=== PATIENT | female | born 1970 | race African-American/Black ===

== ENCOUNTER 2018-02-19 23:41 | Emergency (ER) | payer MEDICAID ==
[~2018-02-19] VITALS: Ht 167.6 cm; Wt 64.9 kg
[2018-02-19] MEDS ORDERED: DILANTIN100 MG ORAL ×2 (23:47→23:56)
--- NOTE | 2018-02-19 23:56 | Emergency Room Report ---
History of Present Illness General Chief Complaint: Seizure Source: Patient, EMS Present Illness HPI A 47-year-old female with a history of seizure and also has a psych history. She presents with questionable seizure. She says she been out of Reglan for the last 3 months. No one we will refill them for her. Supposedly she had a seizure and her friend called 911. No tongue laceration. No incontinence of bowel or urine. No other injury. Denies any other complaint. Similar symptom in the past. Allergies: Coded Allergies: PENICILLINS (Unverified Allergy, Unknown, 02/19/18) Patient History Past Medical History: see triage record, old chart reviewed, HTN, seizures, psych hx Past Surgical History: other Pertinent Family History: none Social History: Reports: smoking Now: No Immunizations: other Reviewed Nursing Documentation: PMH: Agreed; PSxH: Agreed Nursing Documentation-PMH Past Medical History: No History, Except For Hx Seizures: Yes Review of Systems Eye: Denies: eye pain, blurred vision ENT: Denies: ear pain, nose congestion, throat swelling Respiratory: Denies: cough, shortness of breath Cardiovascular: Denies: chest pain, palpitations Gastrointestinal: Denies: abdominal pain, diarrhea, nausea, vomiting Musculoskeletal: Denies: back pain, joint pain Skin: Denies: rash Neurological: Denies: headache, numbness Endocrine: Denies: increased thirst, increased urine Hematologic/Lymphatic: Denies: easy bruising All Other Systems: negative except mentioned in HPI Physical Exam Vital Signs Date Time Temp Pulse Resp B/P (MAP) Pulse Ox O2 Delivery O2 Flow Rate FiO2 02/19/18 23:43 98.0 70 11 166/95 100 Room Air 98.1 vitals with high blood pressure Sp02 EP Interpretation: reviewed, normal General Appearance: well appearing, no apparent distress, alert Head: normocephalic, atraumatic Eyes: bilateral eye PERRL, bilateral eye EOMI ENT: hearing grossly normal, normal pharynx Neck: full range of motion, supple, no meningismus Respiratory: chest non-tender, lungs clear, normal breath sounds Cardiovascular #1: regular rate, rhythm, no murmur Gastrointestinal: normal bowel sounds, non tender, no mass, no organomegaly, no bruit, non-distended Musculoskeletal: back normal, gait/station normal, normal range of motion Psychiatric: mood/affect normal Skin: warm/dry Medical Decision Making Diagnostic Impression: Primary Impression: Seizure disorder Additional Impression: Hypertension Qualified Codes: I10 - Essential (primary) hypertension ER Course Patient with seizure. No evidence of any trauma. No focal deficit. No postictal period. I loaded her with Dilantin here and will discharge her home with refill on Dilantin. Last Vital Signs Date Time Temp Pulse Resp B/P (MAP) Pulse Ox O2 Delivery O2 Flow Rate FiO2 02/19/18 23:43 98.0 70 11 166/95 100 Room Air 98.1 Status: improved Disposition: HOME, SELF-CARE Condition: Stable Scripts Phenytoin Sodium Extended* (DILANTIN*) 100 Mg Capsule 300 MG ORAL BEDTIME, #270 CAP Prov: KINDRA WHEELER M.D. 02/19/18 Patient Instructions: Seizure, Adult Additional Instructions: Take your medication. Follow-up with your doctor in 7 days. Return if worse. KINDRA WHEELER M.D. Feb 19, 2018 23:56
[2018-02-20] MEDS ORDERED: Phenytoin 100mg cap ORAL ONE
[2018-02-20] MEDS ORDERED: Phenytoin 500 MG in NS 110 ML IVPB ONE ×2
[2018-02-20 00:03] VITALS: BP 142/82
[2018-02-20 00:45] VITALS: BP 148/79
[2018-03-01] MEDS ORDERED: DILANTIN100 MG ORAL (15:45)
== END 2018-02-20 00:40 | disposition home or self-care (01) ==
LOC: EDBD 23:41 → EMR 23:55
DX: G40.909 Epilepsy, unspecified, not intractable, without status epilepticus (principal); I10 Essential (primary) hypertension; Z88.0 Allergy status to penicillin
CPT/HCPCS: 96365; 99283; J1165; 96374

== ENCOUNTER 2018-03-02 09:49 | Emergency (ER) | payer MEDICAID ==
[~2018-03-02] VITALS: Ht 172.7 cm; Wt 70.3 kg
[~2018-03-02 09:49] MED LIST: DILANTIN100 MG ORAL
[2018-03-02 09:50] VITALS: BP 157/77
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
[2018-03-02] MEDS ORDERED: DILANTIN100 MG ORAL (10:23)
[2018-03-02 10:29] LABS: BASOPHILS % (AUTO) 1.3 % (0.0-2.0); EOSINOPHILS % (AUTO) 2.3 % (0.0-3.0); HEMOGLOBIN 12.8 G/DL (12.0-16.0); LYMPHOCYTES % (AUTO) 39.4 % (20.0-45.0); MEAN CORPUSCULAR VOLUME 90 FL (80-99); MONOCYTES % (AUTO) 8.1 % (1.0-10.0); PLATELET COUNT 272 K/UL (150-450); RED BLOOD COUNT 4.56 M/UL (4.20-5.40); RED CELL DISTRIBUTION WIDTH 13.3 % (11.6-14.8); WHITE BLOOD COUNT 4.9 K/UL (4.8-10.8)
[2018-03-02 10:42] LABS: ALBUMIN 3.2 G/DL (3.4-5.0); ANION GAP 4 mmol/L (5-15); BLOOD UREA NITROGEN 8 mg/dL (7-18); CALCIUM 8.5 MG/DL (8.5-10.1); CARBON DIOXIDE 30 MMOL/L (21-32); CHLORIDE 104 MMOL/L (98-107); CREATININE 0.7 MG/DL (0.55-1.30); POTASSIUM 3.8 MMOL/L (3.5-5.1); SODIUM 138 MMOL/L (136-145)
[2018-03-02 10:56] LABS: ALANINE AMINOTRANSFERASE 25 U/L (12-78); ALKALINE PHOSPHATASE 51 U/L (46-116); ASPARTATE AMINO TRANSFERASE 15 U/L (15-37); BILIRUBIN,TOTAL 0.3 MG/DL (0.2-1.0)
[2018-03-02 11:02] LABS: ALBUMIN/GLOBULIN RATIO 0.2 (1.0-2.7)
[2018-03-02 11:49] VITALS: BP 134/75
[2018-03-02 13:12] VITALS: BP 122/74
[2018-03-02] MEDS ORDERED: Phenytoin 100mg cap ORAL SCH (21:00)
== END 2018-03-02 13:14 | disposition home or self-care (01) ==
LOC: EDBD 09:49 → EMR 11:52
DX: G40.909 Epilepsy, unspecified, not intractable, without status epilepticus (principal); J45.909 Unspecified asthma, uncomplicated; Z88.0 Allergy status to penicillin
CPT/HCPCS: 36415; 80053; 80185; 80307; 85025; 99283

== ENCOUNTER 2018-08-01 05:46 | Emergency (ER) | payer MEDICAID ==
[~2018-08-01] VITALS: Ht 165.1 cm; Wt 72.6 kg
[2018-08-01 06:00] VITALS: BP 154/82
[2018-08-01] MEDS ORDERED: Nitroglycerin 2% oint pkt TOPIC ONE (06:00)
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
[2018-08-01 06:16] LABS: BASOPHILS % (AUTO) 1.3 % (0.0-2.0); EOSINOPHILS % (AUTO) 0.7 % (0.0-3.0); HEMATOCRIT 46.1 % (37.0-47.0); LYMPHOCYTES % (AUTO) 26.3 % (20.0-45.0); MEAN CORPUSCULAR VOLUME 88 FL (80-99); MONOCYTES % (AUTO) 4.8 % (1.0-10.0); NEUTROPHILS % (AUTO) 66.9 % (45.0-75.0); PLATELET COUNT 213 K/UL (150-450); RED BLOOD COUNT 5.22 M/UL (4.20-5.40); RED CELL DISTRIBUTION WIDTH 13.4 % (11.6-14.8); WHITE BLOOD COUNT 6.9 K/UL (4.8-10.8)
[2018-08-01 06:25] LABS: ANION GAP 9 mmol/L (5-15); BLOOD UREA NITROGEN 12 mg/dL (7-18); CALCIUM 9.6 MG/DL (8.5-10.1); CARBON DIOXIDE 28 MMOL/L (21-32); CHLORIDE 100 MMOL/L (98-107); CREATININE 0.7 MG/DL (0.55-1.30); POTASSIUM 4.5 MMOL/L (3.5-5.1); SODIUM 137 MMOL/L (136-145)
[2018-08-01 06:32] LABS: ALANINE AMINOTRANSFERASE 24 U/L (12-78); ALBUMIN 4.1 G/DL (3.4-5.0); ALBUMIN/GLOBULIN RATIO 0.8 (1.0-2.7); ALKALINE PHOSPHATASE 71 U/L (46-116); ASPARTATE AMINO TRANSFERASE 29 U/L (15-37); BILIRUBIN,TOTAL 0.6 MG/DL (0.2-1.0)
[2018-08-01 07:12] VITALS: BP 151/96
--- NOTE | 2018-08-01 08:01 | Emergency Room Report ---
Physical Exam Vital Signs Date Time Temp Pulse Resp B/P (MAP) Pulse Ox O2 Delivery O2 Flow Rate FiO2 08/01/18 05:51 98.2 76 18 154/82 96 Room Air Medical Decision Making Diagnostic Impression: Primary Impression: ACS (acute coronary syndrome) ER Course Hospital Course 48 yo F presents to ED c/o chest pain Clinical course Patient initially seen and evaluated by Dr. Roman; please see her note for full history and physical labs reviewed- no leukocytosis, hb/hct stable, electrolytes ok, trop x 1 negative, Utox + THC EKG - some minimal ST elevation in all leads. no reciprocal changes Chest x-ray- no acute process Patient resting comfortably with Nitropaste. Patient is a poor historian with significant comorbidities. Admission for serial troponins would be in patient' s best interest because of insurance patient will be transferred I. I feel this is a highly complex case requiring extensive working including EKG/Rhythm strip, Xray/CT/US, Blood/urine lab work, repeat exams while in ED, and administration of strong opiates/narcotics for pain control, admission to hospital or close patient follow up. Diagnosis - ACS transferred in serious condition Labs Test 08/01/18 06:00 08/01/18 06:01 08/01/18 07:10 Salicylates Level 4.8 ug/mL (2.8-20) Acetaminophen Level < 2 MCG/ML (10-30) Serum Alcohol < 3 mg/dL White Blood Count 6.9 K/UL (4.8-10.8) Red Blood Count 5.22 M/UL (4.20-5.40) Hemoglobin 15.0 G/DL (12.0-16.0) Hematocrit 46.1 % (37.0-47.0) Mean Corpuscular Volume 88 FL (80-99) Mean Corpuscular Hemoglobin 28.7 PG (27.0-31.0) Mean Corpuscular Hemoglobin Concent 32.5 G/DL (32.0-36.0) Red Cell Distribution Width 13.4 % (11.6-14.8) Platelet Count 213 K/UL (150-450) Mean Platelet Volume 6.0 FL (6.5-10.1) Neutrophils (%) (Auto) 66.9 % (45.0-75.0) Lymphocytes (%) (Auto) 26.3 % (20.0-45.0) Monocytes (%) (Auto) 4.8 % (1.0-10.0) Eosinophils (%) (Auto) 0.7 % (0.0-3.0) Basophils (%) (Auto) 1.3 % (0.0-2.0) Sodium Level 137 MMOL/L (136-145) Potassium Level 4.5 MMOL/L (3.5-5.1) Chloride Level 100 MMOL/L (98-107) Carbon Dioxide Level 28 MMOL/L (21-32) Anion Gap 9 mmol/L (5-15) Blood Urea Nitrogen 12 mg/dL (7-18) Creatinine 0.7 MG/DL (0.55-1.30) Estimat Glomerular Filtration Rate > 60 mL/min (>60) Glucose Level 102 MG/DL (74-106) Calcium Level 9.6 MG/DL (8.5-10.1) Total Bilirubin 0.6 MG/DL (0.2-1.0) Aspartate Amino Transf (AST/SGOT) 29 U/L (15-37) Alanine Aminotransferase (ALT/SGPT) 24 U/L (12-78) Alkaline Phosphatase 71 U/L (46-116) Troponin I 0.000 ng/mL (0.000-0.056) Total Protein 9.0 G/DL (6.4-8.2) Albumin 4.1 G/DL (3.4-5.0) Globulin 4.9 g/dL Albumin/Globulin Ratio 0.8 (1.0-2.7) Phenytoin (Dilantin) Level < 0.5 ug/mL (10-20) Urine Opiates Screen Negative (NEGATIVE) Urine Barbiturates Screen Negative (NEGATIVE) Phencyclidine (PCP) Screen Negative (NEGATIVE) Urine Amphetamines Screen Negative (NEGATIVE) Urine Benzodiazepines Screen Negative (NEGATIVE) Urine Cocaine Screen Negative (NEGATIVE) Urine Marijuana (THC) Screen Positive (NEGATIVE) EKG Diagnostic Results Rate: normal Rhythm: NSR ST Segments: no acute changes ASA given to the pt in ED: No - given by ems Rhythm Strip Diag. Results EP Interpretation: yes Rhythm: NSR, no PVC's, no ectopy Chest X-Ray Diagnostic Results Chest X-Ray Diagnostic Results : Chest X-Ray Ordered: Yes # of Views/Limited/Complete: 1 View Indication: Chest Pain EP Interpretation: Yes Interpretation: no consolidation, no effusion, no pneumothorax, no acute cardiopulmonary disease Impression: No acute disease Electronically Signed by: Electronically signed by Zander Huang MD Last Vital Signs Date Time Temp Pulse Resp B/P (MAP) Pulse Ox O2 Delivery O2 Flow Rate FiO2 08/01/18 07:12 98.2 74 18 151/96 99 Room Air Status: improved Disposition: XFER [facility] Condition: Serious Referrals: [facility],REFERR[facility] (PCP) Zander Huang MD Aug 01, 2018 08:01
[2018-08-01 08:20] VITALS: BP 133/87
[2018-08-01 09:45] VITALS: BP 129/69
[2018-08-01 10:35] VITALS: BP 129/69
--- NOTE | 2018-08-01 10:42 | Diagnostic Imaging Report ---
Indication: Chest pain Comparison: None A single view chest radiograph was obtained. Findings: Cardiomediastinal appearance is within normal limits for age. The lungs are clear. Pulmonary vascularity is appropriate. The diaphragmatic contour is smooth and costophrenic angles are sharp. No pleural effusions are identified. The bones are unremarkable. Impression: No acute findings
== END 2018-08-01 10:35 | disposition short-term general hospital (02) ==
LOC: EDBD 05:46 → EMR 06:00
DX: I24.9 Acute ischemic heart disease, unspecified (principal); I10 Essential (primary) hypertension; I25.2 Old myocardial infarction; F17.200 Nicotine dependence, unspecified, uncomplicated; Z88.0 Allergy status to penicillin
CPT/HCPCS: 36415; 71045; 80053; 80185; 80307; 80329; 84484; 85025; 93005; 99285

== ENCOUNTER 2019-02-23 21:37 | Emergency (ER) | payer MEDICAID ==
[~2019-02-23] VITALS: Ht 167.6 cm; Wt 65.8 kg
--- NOTE | 2019-02-23 21:42 | Emergency Room Report ---
History of Present Illness General Chief Complaint: Pain Source: Patient, EMS Present Illness HPI EMS was summoned to [facility] for possible seizure. When they arrived there was no evidence of seizure activity. The patient was complaining about bilateral knee pain. In addition she had some bizarre behavior and delusional thoughts. She claims that she is been hospitalized at [place] and was discharged on prednisone for her knees. She has no other pain medication at home. She does admit that she is supposed be taking Dilantin but is not at this time. She says she ran out. Patient denies other pain in her body. She denies suicidal or homicidal ideation. No fevers, chills, chest pain, palpitations, nausea, vomiting, diarrhea, dysuria , abdominal pain, shortness of breath, visual changes, headache. Allergies: Coded Allergies: PENICILLINS (Unverified Allergy, Unknown, 02/19/18) Patient History Past Medical History: see triage record Social History: Reports: smoking, drug use - THC; Denies: alcohol use Social History Narrative from home Reviewed Nursing Documentation: PMH: Agreed; PSxH: Agreed Nursing Documentation-PM Past Medical History: No History, Except For Hx Hypertension: Yes Hx Asthma: Yes Hx Seizures: Yes Review of Systems All Other Systems: negative except mentioned in HPI Physical Exam Vital Signs Date Time Temp Pulse Resp B/P (MAP) Pulse Ox O2 Delivery O2 Flow Rate FiO2 02/23/19 21:32 98.8 87 16 160/100 (120) 99 Room Air Sp02 EP Interpretation: reviewed, normal General Appearance: well appearing, no apparent distress, alert, other - GCS 14 - slightly confused and delusional Head: normocephalic, atraumatic Eyes: bilateral eye normal inspection, bilateral eye PERRL, bilateral eye EOMI ENT: moist mucus membranes - no lingual macerations Neck: full range of motion, supple Respiratory: lungs clear, normal breath sounds Cardiovascular #1: regular rate, rhythm Cardiovascular #2: 2+ radial (R) Gastrointestinal: normal inspection, normal bowel sounds, non tender, no mass, non-distended Musculoskeletal: back normal, gait/station normal, normal range of motion, tender - alleged knees Neurologic: alert, disc jockey III-XII nml as tested, motor strength/tone normal, DTRs symmetric, sensory intact, oriented - X2 Psychiatric: no suicidal/homicidal ideation, anxious, other - delusional and somewhat paranoid Skin: no rash Medical Decision Making Diagnostic Impression: Primary Impression: Bizarre behavior Additional Impressions: Partial seizure with complex symptomatology Delusions ER Course Patient presents with 2 problems. One is that she has bilateral knee pain. Differential includes gout, arthritis, chronic pain, DJD amongst others. She is requesting that x-rays be taken. The second problem is anxiety and delusional behavior. Differential here is exacerbation of schizophrenia, drug ingestion, electrolyte imbalance amongst others. The patient will be evaluated with EKG and labs. Knee x-rays will be obtained. The patient will receive medication for pain. A Dilantin level be checked and we may give her Dilantin here. Ativan will be given also. CT head not indicated because h/o seizures and non-focal neuro at this time. Acting out. Given another ativan. Also given abilify. The patient is ambulatory and not complaining about knee pain while ambulatory. Labs with neg Dilantin. Patient refused x-rays. Tox screen positive for THC. Patient went to bathroom in a wheelchair. There were some jerking movements, though not completely unconscious. Will give IV dilantin and repeat ativan. Haldol given as still delusional. Presented to Dr. Barron who accepts at [place]. UA needed. Laboratory Tests Test 02/23/19 22:16 02/24/19 04:05 02/24/19 04:20 White Blood Count 7.7 K/UL (4.8-10.8) Red Blood Count 4.71 M/UL (4.20-5.40) Hemoglobin 13.6 G/DL (12.0-16.0) Hematocrit 42.4 % (37.0-47.0) Mean Corpuscular Volume 90 FL (80-99) Mean Corpuscular Hemoglobin 28.8 PG (27.0-31.0) Mean Corpuscular Hemoglobin Concent 32.0 G/DL (32.0-36.0) Red Cell Distribution Width 12.6 % (11.6-14.8) Platelet Count 268 K/UL (150-450) Mean Platelet Volume 5.4 FL (6.5-10.1) L Neutrophils (%) (Auto) 52.1 % (45.0-75.0) Lymphocytes (%) (Auto) 38.6 % (20.0-45.0) Monocytes (%) (Auto) 7.2 % (1.0-10.0) Eosinophils (%) (Auto) 0.8 % (0.0-3.0) Basophils (%) (Auto) 1.4 % (0.0-2.0) Sodium Level 141 MMOL/L (136-145) Potassium Level 3.6 MMOL/L (3.5-5.1) Chloride Level 104 MMOL/L (98-107) Carbon Dioxide Level 28 MMOL/L (21-32) Anion Gap 10 mmol/L (5-15) Blood Urea Nitrogen 23 mg/dL (7-18) H Creatinine 1.0 MG/DL (0.55-1.30) Estimate Glomerular Filtration Rate > 60 mL/min (>60) Glucose Level 100 MG/DL (74-106) Lactic Acid Level 0.90 mmol/L (0.4-2.0) Calcium Level 9.3 MG/DL (8.5-10.1) Total Bilirubin 0.4 MG/DL (0.2-1.0) Aspartate Amino Transferase (AST) 25 U/L (15-37) Alanine Aminotransferase (ALT) 22 U/L (12-78) Alkaline Phosphatase 65 U/L (46-116) Total Creatine Kinase 451 U/L (26-308) H Total Protein 8.1 G/DL (6.4-8.2) Albumin 4.6 G/DL (3.4-5.0) Globulin 3.5 g/dL Albumin/Globulin Ratio 1.3 (1.0-2.7) Salicylates Level 2.8 ug/mL (2.8-20) Acetaminophen Level < 2 MCG/ML (10-30) L Phenytoin (Dilantin) Level < 0.5 ug/mL (10-20) L Serum Alcohol < 3 mg/dL Urine Color Pale yellow Urine Appearance Clear Urine pH 7 (4.5-8.0) Urine Specific [place] 1.010 (1.005-1.035) Urine Protein Negative (NEGATIVE) Urine Glucose (UA) Negative (NEGATIVE) Urine Ketones Negative (NEGATIVE) Urine Blood 1+ (NEGATIVE) H Urine Nitrite Negative (NEGATIVE) Urine Bilirubin Negative (NEGATIVE) Urine Urobilinogen Normal MG/DL (0.0-1.0) Urine Leukocyte Esterase Negative (NEGATIVE) Urine RBC 2-4 /HPF (0 - 2) H Urine WBC 0 /HPF (0 - 2) Urine Squamous Epithelial Cells Few /LPF (NONE/OCC) Urine Bacteria None /HPF (NONE) Urine Opiates Screen Negative (NEGATIVE) Urine Barbiturates Screen Negative (NEGATIVE) Phencyclidine (PCP) Screen Negative (NEGATIVE) Urine Amphetamines Screen Negative (NEGATIVE) Urine Benzodiazepines Screen Negative (NEGATIVE) Urine Cocaine Screen Negative (NEGATIVE) Urine Marijuana (THC) Screen Positive (NEGATIVE) H Urine HCG, Qualitative Negative (NEGATIVE) EKG Diagnostic Results Rate: normal Rhythm: NSR ST Segments: no acute changes - MOUNA Rhythm Strip Diag. Results EP Interpretation: yes Rhythm: NSR, no PVC's, no ectopy Last Vital Signs Date Time Temp Pulse Resp B/P (MAP) Pulse Ox O2 Delivery O2 Flow Rate FiO2 7/01/08 07:43 98.3 72 18 126/80 100 Room Air Status: improved Disposition: [facility]FER [facility] Condition: Serious Elan Silveira MD Feb 23, 2019 21:42
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
[2019-02-23] MEDS ORDERED: LORazepam Inj 2mg/ml 1ml IV ONE ×2 (21:45→23:00)
--- NOTE | 2019-02-23 21:45 | NUR ---
ED Nurse Note: SEIZURE AND ASPIRATION PRECAUTION STARTED PER ERMD ORDER, BED LOWEST POSITION W/ SIDERAIL AND SEIZURE PADDS IN PLACE.
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
[2019-02-23 22:17] VITALS: BP 159/89
--- NOTE | 2019-02-23 22:20 | NUR ---
ED Nurse Note: PT GIVEN EXTRA WARM BLANKET AND SANDWICH AND JUICE. WILL CONT MONITOR. SAFETY PRECAUTION IN PLACE.
[2019-02-23 22:22] LABS: BASOPHILS % (AUTO) 1.4 % (0.0-2.0); EOSINOPHILS % (AUTO) 0.8 % (0.0-3.0); HEMATOCRIT 42.4 % (37.0-47.0); HEMOGLOBIN 13.6 G/DL (12.0-16.0); LYMPHOCYTES % (AUTO) 38.6 % (20.0-45.0); MEAN CORPUSCULAR VOLUME 90 FL (80-99); MONOCYTES % (AUTO) 7.2 % (1.0-10.0); NEUTROPHILS % (AUTO) 52.1 % (45.0-75.0); PLATELET COUNT 268 K/UL (150-450); RED BLOOD COUNT 4.71 M/UL (4.20-5.40); RED CELL DISTRIBUTION WIDTH 12.6 % (11.6-14.8); WHITE BLOOD COUNT 7.7 K/UL (4.8-10.8)
[2019-02-23 22:38] LABS: ANION GAP 10 mmol/L (5-15); BLOOD UREA NITROGEN 23 mg/dL (7-18); CALCIUM 9.3 MG/DL (8.5-10.1); CARBON DIOXIDE 28 MMOL/L (21-32); CHLORIDE 104 MMOL/L (98-107); POTASSIUM 3.6 MMOL/L (3.5-5.1); SODIUM 141 MMOL/L (136-145)
[2019-02-23 22:43] LABS: ALANINE AMINOTRANSFERASE 22 U/L (12-78); ALBUMIN 4.6 G/DL (3.4-5.0); ALBUMIN/GLOBULIN RATIO 1.3 (1.0-2.7); ALKALINE PHOSPHATASE 65 U/L (46-116); ASPARTATE AMINO TRANSFERASE 25 U/L (15-37); BILIRUBIN,TOTAL 0.4 MG/DL (0.2-1.0); CREATINE KINASE 451 U/L (26-308)
--- NOTE | 2019-02-23 22:48 | NUR ---
ED Nurse Note: pt c/o pain on elyse leg after receiving tylenol and anxiety, ERMD notified
[2019-02-23] MEDS ORDERED: Ketorolac 30mg Inj IV ONE (23:00)
[2019-02-24 02:00] VITALS: BP 148/106
[2019-02-24] MEDS ORDERED: Phenytoin 500 MG in NS 110 ML IVPB STA (02:09)
[2019-02-24] MEDS ORDERED: LORazepam Inj 2mg/ml 1ml IV ONE (02:30)
--- NOTE | 2019-02-24 02:30 | NUR ---
ED Nurse Note: Got this pt from [facility]. Patient is crying, anxious, keep screaming, shaking in the bed, no active seizure activity noticed. AAO x3, VSS at this time.
--- NOTE | 2019-02-24 02:30 | NUR ---
HAND-OFF: Report given to IFRAH Patel and endorsed care. pt moved to RM. 1
[2019-02-24] MEDS ORDERED: Phenytoin 100mg cap ORAL ONE (04:00)
--- NOTE | 2019-02-24 04:14 | NUR ---
ED Nurse Note: urine collected sent down
[2019-02-24 04:15] VITALS: BP 145/100
--- NOTE | 2019-02-24 04:28 | NUR ---
ED Nurse Note: Patient asked to go to the bathroom, RN explain that she can not walk to the bathroom, that she is so weak and she is going to fall. Patient started skreaming, pushing, refused to use bed side comod and bed manjarrez.
[2019-02-24] MEDS ORDERED: Haloperidol 5mg/ml Inj IM ONE (04:30)
[2019-02-24] MEDS ORDERED: DiphenhydrAMINE 50mg/ml Inj IVP ONE (04:30)
[2019-02-24 05:10] LABS: APPEARANCE,URINE CLEAR; BILIRUBIN, URINE NEGATIVE (NEGATIVE); COLOR,URINE PALE YELLOW; GLUCOSE, URINE (UA) NEGATIVE (NEGATIVE); KETONES,URINE NEGATIVE (NEGATIVE); LEUKOCYTE ESTERASE ,URINE NEGATIVE (NEGATIVE); NITRITE,URINE NEGATIVE (NEGATIVE); PH,URINE 7 (4.5-8.0); PROTEIN,URINE NEGATIVE (NEGATIVE); UROBILINOGEN,URINE NORMAL MG/DL (0.0-1.0)
--- NOTE | 2019-02-24 07:10 | NUR ---
HAND-OFF: Report given to IFRAH Fermin.
--- NOTE | 2019-02-24 07:20 | NUR ---
ED Nurse Note: REPORT RECEIVED FROM IFRAH COLLINS. PT SLEEPING PEACEFULLY IN BED IN NAD. EASILY AROUSABLE TO VOICE. SEIZURE PROTOCOL IN PLACE. VSS.
[2019-02-24 07:21] VITALS: BP 132/89
--- NOTE | 2019-02-24 07:39 | NUR ---
ED Nurse Note: ROYALTY AT BEDSIDE. REPORT GIVEN TO EMS. [facility] CALLED FOR PT REPORT. REPORT GIVEN TO IFRAH PÉREZ. PT TAKEN TO [facility] VIA AMBULANCE WITH ALL BELONGINGS ACCOMPANIED BY EMS. VSS.
[2019-02-24 07:43] VITALS: BP 126/80
== END 2019-02-24 07:39 | disposition short-term general hospital (02) ==
LOC: EDBD 21:37 → EMR 21:49
DX: F22 Delusional disorders (principal); M25.562 Pain in left knee; M25.561 Pain in right knee; G40.109 Localization-related (focal) (partial) symptomatic epilepsy and epileptic syndromes with simple partial seizures, not intractable, without status epilepticus; J45.909 Unspecified asthma, uncomplicated; I10 Essential (primary) hypertension; Z88.0 Allergy status to penicillin
CPT/HCPCS: 36415; 80053; 80185; 80307; 80329; 81003; 81025; 82550; 83605; 85025; 93005; 96361; 96365; 96372; 96375; 96376; 99285; J1165; J1200; J1630; J1885

== ENCOUNTER 2019-03-01 21:09 | Emergency (ER) | payer MEDICAID ==
[~2019-03-01] VITALS: Ht 167.6 cm; Wt 66.7 kg
[2019-03-01 21:18] VITALS: BP 144/97
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
--- NOTE | 2019-03-01 21:44 | NUR ---
ED Nurse Note: splint on left pinky was applyed.
[2019-03-01] MEDS ORDERED: IBUPROFEN600 MG ORAL (22:13)
[2019-03-01 22:15] VITALS: BP 144/97
--- NOTE | 2019-03-01 22:15 | NUR ---
ED Nurse Note: Pt cleared by health care Provider for discharge. DC instructions/prescription was given and explained to pt and verbalized understanding of teachings. All medical deviecs such as ID band removed. Pt is AAO x4, ambulatory and left with all personal belongings.
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
--- NOTE | 2019-03-02 12:01 | Diagnostic Imaging Report ---
Indication: left hand pain. Comparison: None Findings: 3 views of the left hand were obtained. There is no definite fracture identified. There are arthritic changes suspected involving some of the interphalangeal joints. The fingers are not assessed well because of their flexed position on multiple views. IMPRESSION: No acute injury appreciated. Somewhat limited evaluation due to flexion of the digits. Suggestion of arthrosis.
== END 2019-03-01 22:15 | disposition home or self-care (01) ==
LOC: EDBD 21:09 → EDUNIT# 21:09 → EMR 21:23
DX: S63.615A Unspecified sprain of left ring finger, initial encounter (principal); Y04.8XXA Assault by other bodily force, initial encounter; Y92.9 Unspecified place or not applicable; Z88.0 Allergy status to penicillin; G40.909 Epilepsy, unspecified, not intractable, without status epilepticus; I10 Essential (primary) hypertension
CPT/HCPCS: 29130; 99283